=== PATIENT | female | born 1935 | race Caucasian/White ===

== ENCOUNTER 2016-06-14 12:49 | Emergency (ER) | payer OTHER ==
--- NOTE | 2016-06-14 13:15 | CPEKG ---
Heart Rate: 78 RR Interval: 769 P-R Interval: 144 QRSD Interval: 76 QT Interval: 380 QTC Interval: 433 P Guthrie: 0 QRS Guthrie: 76 T Wave Guthrie: -39 EKG Severity - BORDERLINE ECG - EKG Impression: SINUS RHYTHM EKG Impression: PROBABLE LEFT ATRIAL ABNORMALITY Electronically Signed By: Zain Tan 14-Jun-2016 13:25:20
[2016-06-14 13:19] VITALS: TEMP 98.1
[2016-06-14] MEDS ORDERED: IPRATROPIUM/ALBUTEROL 3 ML DEYVIAL IH ONE (13:19)
--- NOTE | 2016-06-14 13:24 | UCPHY ---
H & P Patient Type: Established Chief Complaint Nursing Narrative: 5days of sob and chest tight and pressure. Congestion. Denies f/c . Denies n/v Time Seen by Provider: 06/14/16 13:06 HPI/ROS: Over the past week or so this patient has had increasing feeling of congestion in her chest with dyspnea. She reports the dyspnea is worse with exertion. She feels a bandlike tightness with this feeling of congestion increases which is sporadic. She reports associated phlegm but denies any significant coughing. She apparently was seen [place] the [place] at [facility]. They sent her here for further evaluation after noting her hypoxia. Headache and O2 sat in the low 80s on room air. ROS: No high fevers or chills. She reports no nasal congestion. No sore throat. She reports no pleuritic pain. She has no heart palpitations or lightheadedness. No lower extremity swelling. No abdominal pain.ROSIs otherwise negative Source: Patient - Personal History Current Tetanus/Diphtheria Vaccine: Unsure Current Tetanus Diphtheria and Acellular Pertussis (TDAP): Unsure Tetanus Vaccine Date: WITHIN 10 YRS - Medical/Surgical History PMH: 4 year lung nodule Colitis Hyperlipidemia Hypothyroidism Though not indicated in the chart the patient reports that she has required prednisone for respiratory illness in the past-question reactive airway disease Other PMH: Lung nodule. hypothyroid. Hyperlipidemia - Family History Significant Family History: No pertinent family hx - Social History Smoking Status: Former smoker (Quit smoking 20 years ago) Alcohol Use: None Drug Use: None Additional Social History: Lives with her . Her accompanies her here today. - Physical Exam Exam: General Appearance: Alert, no distress. Eyes: Pupils equal and round no pallor or injection. ENT, Mouth: Mucous membranes moist. Respiratory: Diminished breath sounds bilaterally with mild rhonchi. No rales are appreciated. Cardiovascular: Regular rate and rhythm. No murmur gallop or rub. No JVD. No peripheral edema. No calf swelling or tenderness. Gastrointestinal: Abdomen is soft and nontender, no masses, bowel sounds normal. Neurological: She is alert with no focal deficits. Skin: Warm and dry, no rashes. Musculoskeletal: Neck is supple nontender. Extremities are symmetrical, full range of motion. Psychiatric: Mood and affect are normal. DIFFERENTIAL DIAGNOSIS: After history and physical exam differential diagnosis was considered for COPD exacerbation, pneumonia, PE, coronary syndrome, influenza Constitutional: Initial Vital Signs Temperature (C) 36.7 C 06/14/16 13:13 Heart Rate 88 06/14/16 13:13 Respiratory Rate 20 06/14/16 13:13 Blood Pressure 157/100 H 06/14/16 13:13 O2 Sat (%) 80 L 06/14/16 13:13 O2 Delivery Mode Nasal Cannula O2 (L/minute) 2 Allergies/Adverse Reactions: aloe [Aloe] Allergy (Severe, Verified 06/14/16 13:19) RED, SWOLLEN LOCALIZED bacitracin [From Neosporin] Allergy (Severe, Verified 06/14/16 13:19) RASH, DERMATITIS bacitracin zinc [From Neosporin] Allergy (Severe, Verified 06/14/16 13:19) RASH, DERMATITIS gramicidin D [From Neosporin] Allergy (Severe, Verified 06/14/16 13:19) RASH, DERMATITIS neomycin sulfate [From Neosporin] Allergy (Severe, Verified 06/14/16 13:19) RASH, DERMATITIS Penicillins Allergy (Severe, Verified 06/14/16 13:19) RASH, WELTS polymyxin B [From Neosporin] Allergy (Severe, Verified 06/14/16 13:19) RASH, DERMATITIS polymyxin B sulfate [From Neosporin] Allergy (Severe, Verified 06/14/16 13:19) RASH, DERMATITIS ALL "CILLINS" Allergy (Uncoded 06/14/16 13:19) RASH/WELTS Home Medications: Medication Instructions Recorded ALPRAZOLAM [Alprazolam ER 0.5 mg] 0.5 mg PO BID PRN 02/02/12 Budesonide [Entocort EC] 9 mg PO DAILY 02/02/12 Calcium Citrate [Citracal (OTC)] 600 mg PO DAILY 02/02/12 Gabapentin 300 mg PO BID 02/02/12 Gluc 2Kcl/Chondr/Lenore Hy/Hy AC 2 each PO DAILY 02/02/12 [Glucosamine & Chondroitin Cap] Levothyroxine [Synthroid 75 mcg 75 mcg PO DAILY06 02/02/12 (RX)] Niacin [Niacin 500 mg (OTC)] 500 mg PO DAILY 02/02/12 Omeprazole 40 mg PO DAILY 02/02/12 Oxybutynin Chloride [Oxybutynin 10 mg PO DAILY 02/02/12 Chloride Er] Travel Manager Completed 02/02/12 02/02/12 Simvastatin [Zocor 20 mg (RX)] 20 mg PO DAILY18 02/02/12 Vitamin E A D 1 tab PO DAILY 02/02/12 Aspirin EC [Aspirin EC 81 mg (OTC)] 81 mg PO .TIW 02/03/12 Albuterol Hfa Anes Only [Proair 2 puffs IH Q4 PRN #1 mdi 06/14/16 Hfa Icu (*)] Azithromycin [Zithromax] 250 mg PO DAILY #4 tab 06/14/16 Fluticasone Hfa 220 Mcg [Flovent 2 puffs IH DAILY #1 mdi 06/14/16 220 MCG Hfa MDI (*)] predniSONE 40 mg PO DAILY #8 tab 06/14/16 Medical Decision Making - Diagnostics EKG Interpretation: 12 lead EKG performed at 1:12 p.m. reveals sinus rhythm at 78 Intervals: Normal throughout [place]: Normal throughout ST segments: Normal throughout Overall assessment normal EKG Imaging: Chest x-ray: Increased AP diameter, findings consistent with airway disease. No focal infiltrates. No pneumothorax by my interpretation ED Course/Re-evaluation: Nasal cannula O2 2 L with O2 sat above 90%. IV, blood cultures, On repeat exam after a DuoNeb patient has decreased wheeze increased aeration feels subjective improvement. Her O2 sat on nasal cannula is 98%. I suspect the initially 80% read was a spurious reading. She is on a trial of room air again after DuoNeb. Get hypoxic the mid 80s off of oxygen despite her clinical improvement. Aspirin 324 Her D-dimer is elevated. Other labs are unremarkable. Discussion: I suspect this patient has a bronchitis potential reactive airway component causing her dyspnea and hypoxia. I counseled her regarding this. She is treated with 20 mg of prednisone (refused a 40 mg dose citing dif with insomnia from pred.) in addition to other medications. Will send her on home O2 close follow-up with primary care physician for recheck in cover her with a macrolide antibiotic. - Data Points Laboratory Results: Laboratory Results 06/14/16 13:30 06/14/16 13:30 06/14/16 06/14/16 14:14 13:30 WBC 5.23 10^3/uL (3.80-9.50) RBC 3.89 L 10^6/uL (4.18-5.33) Hgb 12.2 L g/dL (12.6-16.3) Hct 37.0 L % (38.0-47.0) MCV 95.1 fL (81.5-99.8) MCH 31.4 pg (27.9-34.1) MCHC 33.0 g/dL (32.4-36.7) RDW 13.2 % (11.5-15.2) Plt Count 211 10^3/uL (150-400) MPV 9.1 fL (8.7-11.7) Neut % (Auto) 62.9 % (39.3-74.2) Lymph % (Auto) 17.8 % (15.0-45.0) Wilcox % (Auto) 12.2 % (4.5-13.0) Eos % (Auto) 5.5 % (0.6-7.6) Baso % (Auto) 1.0 % (0.3-1.7) Nucleat RBC Rel Count 0.0 % (0.0-0.2) Absolute Neuts (auto) 3.29 10^3/uL (1.70-6.50) Absolute Lymphs (auto) 0.93 L 10^3/uL (1.00-3.00) Absolute Monos (auto) 0.64 10^3/uL (0.30-0.80) Absolute Eos (auto) 0.29 10^3/uL (0.03-0.40) Absolute Basos (auto) 0.05 10^3/uL (0.02-0.10) Absolute Nucleated RBC 0.00 10^3/uL (0-0.01) Immature Gran % 0.6 % (0.0-1.1) Immature Gran # 0.03 10^3/uL (0.00-0.10) PT 12.4 SEC (12.0-15.0) INR 0.94 (0.83-1.16) APTT 26.3 SEC (23.0-38.0) D-Dimer 0.72 H ug/mLFEU (0.00-0.50) Sodium 142 mEq/L (134-144) Potassium 4.1 mEq/L (3.5-5.2) Chloride 105 mEq/L (97-110) Carbon Dioxide 24 mEq/l (22-31) Anion Gap 13 mEq/L (8-16) BUN 19 mg/dL (7-23) Creatinine 0.9 mg/dL (0.6-1.0) Estimated GFR > 60 Glucose 96 mg/dL (70-100) Calcium 8.8 mg/dL (8.5-10.4) Troponin I < 0.012 ng/mL (0-0.034) Influenza Typ A,B (DFA) NEGATIVE FOR FLU (NEGATIVE) Medications Given: Discontinued Medications Albuterol/Ipratropium (Duoneb) 3 ml IH EDNOW ONE Stop: 06/14/16 13:20 Last Admin: 06/14/16 13:59 Dose: 3 ml Departure - Departure Disposition: Home, Routine, Self-Care Clinical Impression: Bronchitis, Hypoxia Condition: Good Instructions: Acute Bronchitis (ED), Hypoxia (ED) Additional Instructions: Diagnoses: 1. Acute bronchitis 2. Hypoxia 3. Reactive airways Plan: Home on albuterol inhaler with spacer for cough, wheeze or shortness of breath Flovent steroid inhaler Prednisone steroid in the morning after breakfast Zithromax antibiotic Home oxygen-2 L a minute with close follow-up with her primary care physician for recheck this week. Go to the emergency department for any significant worsening despite treatment plan Prescriptions: Fluticasone Hfa 220 Mcg [Flovent 220 MCG Hfa MDI (*)] 2 puffs IH DAILY #1 mdi Albuterol Hfa Anes Only [Proair Hfa Icu (*)] 2 puffs IH Q4 PRN #1 mdi PRN Reason: Wheezing Azithromycin [Zithromax] 250 mg PO DAILY #4 tab - PQRS PQRS Measurement: 134: Depression screening and followup, PRIME MD-PHQ2 (12 years and older) Over the last 2 weeks, how often have you been bothered by any of the following problems? 1. Feeling down, depressed, or hopeless? 2. Little interest or pleasure in doing things? Patient answered no to both 1 and 2 130: Documentation of medications. Reviewed all patient medications, doses, route and frequency. 226: Do you smoke? [No.] 47: 65 and older: Advanced care planning. Patient designates surrogate decision maker as spouse 51: 18 years old and older with diagnosis of COPD, spirometry performance. Spirometry not performed; equipment not available. 52: 18 years old and older with COPD and symptoms of COPD or FEV1<60% predicted prescribed a B Agonist. Na
[2016-06-14 13:37] LABS: % IMMATURE GRANULYOCYTES 0.6 % (0.0-1.1); ABSOLUTE IMMATURE GRANULOCYTES 0.03 10^3/uL (0.00-0.10); ADD DIFF? NO; ADD MORPH? NO; ADD SCAN? NO; ATYPICAL LYMPHOCYTE FLAG 10 (0-99); FRAGMENT RBC FLAG 0 (0-99); HEMOGLOBIN 12.2 g/dL (12.6-16.3); LEFT SHIFT FLG 0 (0-99); LIPEMIA HEMOLYSIS FLAG 80 (0-99); MEAN CELL HEMOGLOBIN 31.4 pg (27.9-34.1); MEAN CELL VOLUME 95.1 fL (81.5-99.8); MEAN PLATELET VOLUME 9.1 fL (8.7-11.7); PLATELET CLUMPS FLAG 0 (0-99); PLATELET COUNT 211 10^3/uL (150-400); RED BLOOD CELL COUNT 3.89 10^6/uL (4.18-5.33); RED CELL DISTRIBUTION WIDTH 13.2 % (11.5-15.2)
[2016-06-14 13:49] LABS: APTT 26.3 SEC (23.0-38.0); INR 0.94 (0.83-1.16); PROTIME(PATIENT) 12.4 SEC (12.0-15.0)
[2016-06-14 13:51] LABS: ANION GAP 13 mEq/L (8-16); CALCIUM 8.8 mg/dL (8.5-10.4); CARBON DIOXIDE 24 mEq/l (22-31); CHLORIDE 105 mEq/L (97-110); CREATININE 0.9 mg/dL (0.6-1.0); GLOMERULAR FILTRATION RATE > 60; GLUCOSE 96 mg/dL (70-100); POTASSIUM 4.1 mEq/L (3.5-5.2); SODIUM 142 mEq/L (134-144)
[2016-06-14 14:04] LABS: TROPONIN I < 0.012 ng/mL (0-0.034)
[2016-06-14] MEDS ORDERED: ASPIRIN 81 MG CHEWABLE TAB PO ONE (14:45)
[2016-06-14] MEDS ORDERED: ALBUTEROL 3 ML DEYVIAL IH ONE ×2 (14:54→14:58)
[2016-06-14] MEDS ORDERED: AZITHROMYCIN 250 MG TAB PO ONE (15:02)
[2016-06-14] MEDS ORDERED: predniSONE 20 MG TAB PO ONE ×2 (15:05→15:18)
--- NOTE | 2016-06-14 15:06 | CT ---
CT Pulmonary Angiogram June 14, 2016, 1430 Hours Clinical Indications: Hypoxia. Comparison: August 31, 2012. Technique: Thinly collimated multidetector helical CT imaging was performed through the chest while 90 mL [id number]-[id number] were injected intravenously without complication. The images were then transferred to an independent workstation where multiplanar and three-dimensional reconstructions were performed by the interpreting physician and reviewed at multiple windows. Dose reduction techniques were utiliz ed. Findings Chest: No pneumonia, pneumothorax, nodules, or pleural effusions are present. An old area of right u pper lobe nodularity and scarring is stable compared to 2012. Minimal atelectatic change is present a t the left base and mild emphysematous change is present. Heart size is normal and there is no perica rdial effusion. No adenopathy and no pulmonary masses are found. CT Pulmonary Angiogram: No intraluminal filling defects are seen in the pulmonary arterial system to suggest pulmonary embolus. The thoracic aorta has a normal contour without evidence of aneurysm or dissection. Impressions 1. No pulmonary emboli or aortic dissection. 2. Minimal atelectatic change and very mild emphysematous change. 3. Stable area of nodularity or scarring in the right upper lobe. 4. Coronary artery calcification moderate in severity. This is a nongated study. Critical results relayed by Dr. Calabrese to Dr. Tan June 14, 2016, 1501 hours.
--- NOTE | 2016-06-14 15:08 | DX ---
PA and Lateral Chest June 14, 2016, 1335 Hours Clinical Indications: Hypoxia. Comparison: March 02, 2016. Findings: The lungs are mildly hyperinflated suggesting mild emphysematous disease. Minimal basilar atelectatic change is present at the left base. No focal infiltrate. Heart size is normal. Pulmonary vasculature is unremarkable. Mild airways disease is present. Impression: No acute cardiopulmonary process. Mild airways and emphysematous disease present.
[2016-06-14 16:30] VITALS: BP 131/85; PULSE 82; RESP 19; O2SAT 95
== END 2016-06-14 16:08 | disposition home or self-care (01) ==
LOC: CED 12:49
DX: J40 Bronchitis, not specified as acute or chronic (principal); R09.02 Hypoxemia; E78.5 Hyperlipidemia, unspecified; E03.9 Hypothyroidism, unspecified; R91.8 Other nonspecific abnormal finding of lung field; Z87.891 Personal history of nicotine dependence
CPT/HCPCS: 71020; 71275; 93005; G0463; 80048-PO; 84484-PO; 85025-PO; 85378-PO; 85610-PO; 85730-PO; 87400-PO; 93010-PO; 99215-PO

== ENCOUNTER → 2017-05-17 | Outpatient (CLI) | payer OTHER | LOC: BRMIMAGING 12:34 | PROVIDERS: ATTEND Family Medicine | DX: Z12.31 Encounter for screening mammogram for malignant neoplasm of breast (principal) | CPT/HCPCS: G0202 ==

== ENCOUNTER → 2018-03-15 | Outpatient (CLI) | payer OTHER | LOC: CIMAGING 14:56 | PROVIDERS: ATTEND Family Medicine | DX: M79.9 Soft tissue disorder, unspecified (principal); D17.1 Benign lipomatous neoplasm of skin and subcutaneous tissue of trunk | CPT/HCPCS: 76882-PO ==

== ENCOUNTER → 2018-04-23 | Outpatient (CLI) | payer OTHER | LOC: BRMIMAGING 13:19 | PROVIDERS: ATTEND Internal Medicine | DX: Z13.820 Encounter for screening for osteoporosis (principal); M85.852 Other specified disorders of bone density and structure, left thigh ==